=== PATIENT | female | born 1995 | race Caucasian/White ===

== ENCOUNTER 2019-03-11 16:58 | Emergency (ER) | payer MEDICAID, SELFPAY ==
[2019-03-11 16:59] VITALS: BP 152/63; PULSE 61; RESP 16; TEMP 36.6; O2SAT 98; BMI 41.1
--- NOTE | 2019-03-11 17:32 | ED.VISSUMM ---
- ER Visit Summary Date of Service: 03/11/19 Chief Complaint: Right ear pain History of Present Illness: The patient is a 23 F who presents with right ear pain that has been waxing and waning over the past month. Patient states she was given a prescription for a Z-Brenden which helped for a while but her pain returned. Patient states the pain radiates into her jaw. Patient describes the pain is sharp. Patient states the pain improves with heating pad and with pressure below her ear. Patient denies any discharge or drainage. Patient denies any hearing changes. Physical Examination: Vital signs are stable. Patient is afebrile. Patient is in no acute distress. Oral mucosa is pink and moist. There is a dental caries noted over the right upper third molar. There is no gingival edema or erythema. The tympanic membranes are clear bilaterally. Neck is supple. Trachea is midline. There is no JVD. Heart was regular rate and rhythm. Lungs are clear and equal bilaterally. Cranial nerves II through XII are intact. There are no focal motor or sensory deficits noted. Emergency Department Course and Treatment: Patient was given a prescription for Pen-Vee K to treat for possible dental infection. Patient was instructed to take Tylenol or ibuprofen as needed for pain. Patient was instructed to follow-up with her primary care physician as well as her dentist in 5 to 7 days. Patient understood and was agreeable with the plan. All questions were answered. Disposition: Discharge home Impression: Dental caries This note was generated with [employer] dictation software. It may contain incorrect words, spelling, and punctuation that were not noted in review of the chart prior to signing ED Disposition - Plan for ED Patient: Disposition: Home or Assisted Living Diagnosis: Dental caries Instructions: Dental Cavity, EARACHE w/o Infection (Adult) Prescriptions: Penicillin V Potassium 500 mg PO 4X/DAY #40 tab Prescription Printed Referrals: Dentist,Your [STAFF PHYSICIAN] - 5-7 Days
== END 2019-03-11 17:48 | disposition home or self-care (01) ==
PROVIDERS: Emergency Provider Emergency Medicine
DX: K02.9 Dental caries, unspecified (principal); E66.9 Obesity, unspecified; F17.200 Nicotine dependence, unspecified, uncomplicated
CPT/HCPCS: 99282